=== PATIENT | male | born 1935 | race Caucasian/White ===

== ENCOUNTER 2018-01-15 05:55 | Day surgery (SDC) | payer MEDICARE, OTHER ==
[2018-01-14 16:43] LABS: BASOPHILS 0.6 % (0-2); EOSINOPHILS 5.5 % (0-7); HEMATOCRIT 40.3 % (42.0-54.0); HEMOGLOBIN 13.1 g/dL (13.5-17.5); IMMATURE GRANULOCYTES 0.4 % (0-5); LYMPHOCYTES 19.1 % (15-50); MCH 31.5 pg (26.0-34.0); MCHC 32.5 g/dL (31.0-37.0); MCV 96.9 fL (80.0-100.0); MEAN PLATELET VOLUME 9.4 fL (7.4-10.4); MONOCYTES 10.9 % (2-11); NEUTROPHILS 63.5 % (40-80); PLATELET COUNT 278 10x3/uL (130-400); RBC 4.16 10x6/uL (4.20-6.10); RDW 14.3 % (11.5-14.5); WBC 6.7 10x3/uL (4.8-10.8)
[2018-01-14 17:06] LABS: APTT 28.5 SECONDS (22.8-39.4); INR 1.06 (0.85-1.17); PROTIME 13.4 SECONDS (11.6-15.0)
[2018-01-14 17:20] LABS: ANION GAP 12.4 mmol/L (8-16); CALCIUM 8.4 mg/dL (8.5-10.1); CARBON DIOXIDE 28.1 mmol/L (21.0-32.0); CREATININE - SERUM 2.2 mg/dL (0.6-1.3); POTASSIUM - SERUM 4.5 mmol/L (3.5-5.1)
[~2018-01-15] VITALS: Ht 182.9 cm; Wt 116.6 kg
--- NOTE | ~2018-01-15 | OP ---
PATIENT NAME: DWIGHT KRAMER MEDICAL RECORD: [id number] :37 LOCATION:[facility] ADMISSION DATE: SURGEON: CAROL SIDDIQUI MD DATE OF OPERATION: 01/15/2018 PREOPERATIVE DIAGNOSIS: End-stage renal disease, on chronic hemodialysis. POSTOPERATIVE DIAGNOSES: End-stage renal disease, on chronic hemodialysis. OPERATION PERFORMED: Creation of a right brachiobasilic Erika type AV fistula as the first of 2 planned operations to construct a brachial artery to translocated basilic vein fistula. SURGEON: Carol Siddiqui MD ANESTHESIA: Regional block plus MAC per MILL ROLL REWINDER. PREOPERATIVE NOTE: Mr. Kramer is an 82-year-old white male patient referred to me by Dr. Gomez. Mr. Kramer has end-stage renal disease and is on chronic hemodialysis with a right-sided tunneled catheter. He requires long-term access. Despite his age of 82, I believe that his tissue should be able to support an AV fistula at least for going to attempt to create 1 today. I am anticipating he will need a brachial translocated fistula in 2 procedures. With the patient under nerve block and a MAC anesthesia, he was prepped and draped in sterile manner. I examined the right arm with Duplex ultrasound after applying nitroglycerin paste and using a Amarilis drain for a proximal venous tourniquet. The basilic vein was the best choice and the artery at the antecubital space appeared to be free of atherosclerotic change. I made a longitudinal incision on the inner aspect of the arm and then a curved this laterally into the antecubital space. I exposed the basilic vein and ligated and divided it just distal to the confluence of the basilic with the median cubital branch. I dissected that median cubital branch then distally in the antecubital space. I exposed first a large radial artery, which has aberrant proximal origin and then deep to that, I exposed the brachial artery, which was larger and I dissected and controlled with Silastic loops. The vein was ligated and divided and bevelled. It was flushed with heparinized saline and treated with topical papaverine. The artery was likewise treated with topical papaverine and then opened for a distance of about 6-7 mm. The artery was flushed proximally and distally with heparinized saline and end-to-side, end of vein to side of artery anastomosis then performed under no tension with running 7-0 Prolene. When completed, the occluding loops and clamps were released, excellent flow was immediately established within the fistula and flow in the distal, radial, and brachial arteries at the level of the antecubital space was preserved. The wound was irrigated with Ancef and gentamicin solution. It was then closed with interrupted inverted 3-0 Vicryl and then running intracuticular 4-0 Monocryl. The incision was sealed with Dermabond glue and dressed with Maxorb Ag, Tegaderm, and Cavilon skin prep. The patient then was awakened and taken back to the recovery room in stable condition. Blood loss during the procedure was essentially 0. Certainly none was administered. All sponges, instruments, and needles were accounted for. No drain was used and no surgical specimen obtained. I anticipate, the patient will go home later today and follow up with me in my office next week from prior surgeries. He has pain medication at home, I OPERATIVE REPORT [id number] DWIGHT KRAMER believe tramadol as well as hydrocodone medications. He can take it as needed for pain. No new prescriptions were given today. He is to continue his same medications and dialysis schedule and renal diet. He will be scheduled to return to the OR in 3-4 weeks, probably for the second stage operation. TRANSINT:[id number] Voice Confirmation ID: [id number] DOCUMENT ID: [id number] CAROL SIDDIQUI MD at 1123 CC: OMAR GOMEZ MD [id number] DICTATION DATE: 01/15/18 0954 BODY SHOP TECHNICIAN: 01/15/18 1250 [facility] 01/15/18 [facility] [address] [place] [address]
[~2018-01-15 05:55] MED LIST: ASPIRIN EC81 M1 PO; BUMEX2 MG PO; COREG6.25 MG PO; CRESTOR5 MG PO; KLONOPIN1 MG PO; LOTREL 5/20 MG1 CAP; NOVOLIN 70/30 110 ML; RENA-VITE TABL0.8 MG PO; RENAGEL800 MG PO
[2018-01-15 06:36] VITALS: BP 142/58; Ht 182.9 cm; Wt 116.6 kg
== END 2018-01-15 12:25 | disposition home or self-care (01) ==
LOC: D.OPS 05:55
PROVIDERS: Surgery
DX: N18.6 End stage renal disease (principal); Z99.2 Dependence on renal dialysis; Z01.812 Encounter for preprocedural laboratory examination

== ENCOUNTER 2018-02-12 06:00 | Day surgery (SDC) | payer MEDICARE, OTHER ==
[2018-02-11 17:02] LABS: BASOPHILS 0.3 % (0-2); EOSINOPHILS 5.7 % (0-7); HEMATOCRIT 35.9 % (42.0-54.0); IMMATURE GRANULOCYTES 0.5 % (0-5); LYMPHOCYTES 20.1 % (15-50); MCH 31.4 pg (26.0-34.0); MCHC 33.4 g/dL (31.0-37.0); MONOCYTES 11.5 % (2-11); NEUTROPHILS 61.9 % (40-80); RBC 3.82 10x6/uL (4.20-6.10); RDW 14.2 % (11.5-14.5); WBC 6.5 10x3/uL (4.8-10.8)
[2018-02-11 17:11] LABS: PLATELET COUNT 205 10x3/uL (130-400)
[2018-02-11 17:21] LABS: APTT 28.1 SECONDS (22.8-39.4); INR 1.02 (0.85-1.17)
[2018-02-11 17:24] LABS: ANION GAP 13.7 mmol/L (8-16); CARBON DIOXIDE 29.6 mmol/L (21.0-32.0); CREATININE - SERUM 2.3 mg/dL (0.6-1.3); POTASSIUM - SERUM 4.3 mmol/L (3.5-5.1)
[~2018-02-12] VITALS: Ht 182.9 cm; Wt 117.9 kg
--- NOTE | ~2018-02-12 | OP ---
PATIENT NAME: DWIGHT KRAMER MEDICAL RECORD: [id number] :37 LOCATION:[facility] ADMISSION DATE: SURGEON: CAROL SIDDIQUI MD DATE OF OPERATION: 02/12/2018 REFERRING PHYSICIAN: Omar Gomez MD PREOPERATIVE DIAGNOSIS: End-stage renal disease and dependence on hemodialysis. POSTOPERATIVE DIAGNOSIS: End-stage renal disease and dependence on hemodialysis. OPERATION PERFORMED: Second stage and creation of a brachial to translocated basilic AV fistula. SURGEON: Carol Siddiqui MD ANESTHESIA: General and also a regional block per GOLD LAYER. PREOPERATIVE NOTE: Mr. Kramer is an 82-year-old white male patient with end-stage renal disease, had a first stage of his planned 2 operations several weeks ago when I created a Erika type brachial to basilic AV fistula in his right arm. The fistula is enlarging and it is now time to return him to the operating room to create the real brachial artery to translocated fistula. After the patient was prepped and draped in a sterile manner, I examined the arm with Duplex ultrasound and noted that the basilic vein was quite nicely dilated and there did not appear to be many large tributaries or perforating or communicating veins. I made an incision along the arm from axilla to the prior incision and cut down through the subcutaneous tissue and fascia to expose the basilic vein from the antecubital level to the axilla. It was completely mobilized. Tributaries were divided between Vicryl ties and Hemoclips. The vein was treated repeatedly with topical papaverine and the wound and the vein were kept moistened with antibiotic containing saline solution. The vein was clamped distally, very close to the arterial anastomosis and an atraumatic clamp applied proximally. The vein was then transected and bevelled and the vein was flushed with heparinized saline and generally prepared for anastomosis and the vein was marked with a surgical marker to prevent twisting. I made a very superficial subcutaneous tunnel and passed the graft or the vein through it, but found that I had really made the tunnel just a little too long and it was not possible to adjust the vein without removing it from the tunnel. I did that and then mobilized the tissues with some electrocautery dissection and then further blunt dissection. I wanted to try to keep the graft as superficial as possible, but anterior to the primary incision also as much as possible. His subcutaneous tissues were very fragile and the operation was very much compromised by the difficulty I had in handling the subcutaneous tissues and skin. I ended up anastomosing the vein to the brachial artery above the previous anastomosis. The artery was opened and flushed with heparinized saline and an end-to-side basilic vein to brachial artery anastomosis was performed with running 7-0 Prolene and when completed, excellent flow was established immediately in the fistula. The vein distally coming off the original arterial anastomosis was ligated with silk ties. The wound was then closed over a SUE drain brought out distally through a separate incision. I left the translocated basilic vein as superficial as possible just beneath and slightly anterior to the primary surgical incision. The wound was closed in layers with interrupted 3-0 Vicryl OPERATIVE REPORT [id number] DWIGHT KRAMER and the skin was closed with a running intracuticular 4-0 Monocryl and Dermabond glue. The incision was dressed with Maxorb Ag, Tegaderm, and Cavilon skin prep. The patient was awakened and taken to the recovery room in stable condition. Blood loss was estimated about 100 cc. None was replaced. All sponges, instruments and needles were accounted for. One SUE 10 mm diameter flat fluted drain was utilized. In the recovery room, there was good pulsation, palpable thrill and audible bruit over the fistula, which was also visible. The patient is placed in a Sling to be worn for about 24 hours or until the nerve block wears off. The patient will be discharged to home today and will be returning to see me in my office next week. I have asked for home health referral so the nurses can see him and change his wounds and check on his SUE drain daily. TRANSINT:[id number] Voice Confirmation ID: [id number] DOCUMENT ID: [id number] CAROL SIDDIQUI MD at 2205 CC: OMAR GOMEZ MD [id number] DICTATION DATE: 02/25/18 185 CERTIFIED ETHICAL HACKER: 02/26/18 0236 [facility] 02/12/18 [address] [place] [address]
[2018-02-12 06:14] VITALS: BP 148/68; Ht 182.9 cm; Wt 117.9 kg
== END 2018-02-12 15:00 | disposition home or self-care (01) ==
LOC: D.OPS 06:00 → D.PAN 08:00 → D.OPS 15:00
PROVIDERS: Anesthesiology
DX: N18.6 End stage renal disease (principal); Z99.2 Dependence on renal dialysis; Z01.812 Encounter for preprocedural laboratory examination

== ENCOUNTER → 2018-04-02 16:56 | Outpatient (CLI) | payer MEDICARE, OTHER ==
[2018-02-12 06:14] VITALS: BMI 35.3
== END | disposition home or self-care (01) ==
LOC: D.LABREF 16:56
DX: S41.101A Unspecified open wound of right upper arm, initial encounter (principal); L08.9 Local infection of the skin and subcutaneous tissue, unspecified; X58.XXXA Exposure to other specified factors, initial encounter

== ENCOUNTER 2019-11-26 10:07 | Inpatient (IN) | payer MEDICARE, OTHER ==
[~2019-11-26] VITALS: Ht 182.9 cm; Wt 121.6 kg
[2019-11-26] MEDS ORDERED: GABAPENTIN100 MG PO (10:26)
[2019-11-26] MEDS ORDERED: ULTRAM50 MG PO (10:27)
[2019-11-26 11:00] VITALS: BP 101/52
--- NOTE | 2019-11-26 11:00 | NUR ---
URINE COLLECTED AND SENT VIA TUBE SYSTEM
[2019-11-26 11:22] LABS: BASOPHILS 0.3 % (0-2); EOSINOPHILS 2.7 % (0-7); HEMATOCRIT 35.9 % (42.0-54.0); HEMOGLOBIN 11.2 g/dL (13.5-17.5); IMMATURE GRANULOCYTES 0.5 % (0-5); LYMPHOCYTES 10.7 % (15-50); MCH 30.8 pg (26.0-34.0); MCHC 31.2 g/dL (31.0-37.0); MCV 98.6 fL (80.0-100.0); MEAN PLATELET VOLUME 10.5 fL (7.4-10.4); MONOCYTES 19.1 % (2-11); NEUTROPHILS 66.7 % (40-80); RBC 3.64 10x6/uL (4.20-6.10); RDW 15.9 % (11.5-14.5); WBC 7.5 10x3/uL (4.8-10.8)
[2019-11-26 11:23] LABS: PLATELET COUNT 250 10x3/uL (130-400)
[2019-11-26 11:31] LABS: BILIRUBIN NEGATIVE (NEGATIVE); GLUCOSE 250 mg/dL (NEGATIVE); KETONE NEGATIVE (NEGATIVE); NITRITE NEGATIVE (NEGATIVE); SPECIFIC GRAVITY 1.015 (1.005-1.020); UROBILINOGEN NORMAL (NORMAL)
[2019-11-26 11:32] LABS: WHITE CELLS - URINE 25-50 /hpf (NEGATIVE)
[2019-11-26 11:33] LABS: AMORPHOUS SEDIMENT <1+ /lpf (NONE SEEN); BACTERIA FEW /hpf (NEGATIVE)
[2019-11-26 12:18] VITALS: BP 101/49
[2019-11-26 13:10] LABS: ALBUMIN 2.6 g/dL (3.4-5.0); ANION GAP 16.2 mmol/L (8-16); BILIRUBIN - TOTAL 1.05 mg/dL (0.2-1.3); CALCIUM 8.1 mg/dL (8.5-10.1); CARBON DIOXIDE 26.9 mmol/L (21.0-32.0); CREATININE - SERUM 6.5 mg/dL (0.6-1.3); PROTEIN - SERUM 5.8 g/dL (6.4-8.2); TROPONIN-I 0.041 ng/mL (0.000-0.060)
[2019-11-26 13:12] LABS: POTASSIUM - SERUM 6.1 mmol/L (3.5-5.1)
--- NOTE | 2019-11-26 16:20 | NUR ---
PT TO DIALYSIS AT THIS TIME VIS STRETCHER.
--- NOTE | 2019-11-26 18:19 | NUR ---
BED RECEIVED FOR PT AT THIS TIME. REPORT CALLED TO ARVIN GUEVARA ON MED II. DIALYSIS NOTIFIED THAT PT IS TO GO TO ROOM 2140 UPON COMPLETION.
[2019-11-26] MEDS ORDERED: RENVELA800 MG PO (20:47)
[2019-11-27 01:33] VITALS: BP 111/45; BMI 36.4
[2019-11-27 04:00] VITALS: BP 109/57; BP 120/52
[2019-11-27 06:25] LABS: BASOPHILS 0.2 % (0-2); EOSINOPHILS 0.8 % (0-7); HEMOGLOBIN 11.5 g/dL (13.5-17.5); IMMATURE GRANULOCYTES 0.8 % (0-5); LYMPHOCYTES 6.8 % (15-50); MCH 31.1 pg (26.0-34.0); MCHC 31.9 g/dL (31.0-37.0); MCV 97.3 fL (80.0-100.0); MEAN PLATELET VOLUME 10.5 fL (7.4-10.4); MONOCYTES 16.2 % (2-11); NEUTROPHILS 75.2 % (40-80); PLATELET COUNT 249 10x3/uL (130-400); RDW 15.8 % (11.5-14.5); WBC 8.7 10x3/uL (4.8-10.8)
[2019-11-27 08:26] LABS: ALBUMIN 2.5 g/dL (3.4-5.0); ANION GAP 16.1 mmol/L (8-16); BILIRUBIN - TOTAL 1.2 mg/dL (0.2-1.3); CALCIUM 8.5 mg/dL (8.5-10.1); CARBON DIOXIDE 27.8 mmol/L (21.0-32.0); MAGNESIUM - SERUM 2.4 mg/dL (1.8-2.4); PHOSPHOROUS 7.6 mg/dL (2.5-4.9); PROTEIN - SERUM 6.2 g/dL (6.4-8.2)
[2019-11-27 08:27] LABS: POTASSIUM - SERUM 4.9 mmol/L (3.5-5.1)
[2019-11-27 09:23] VITALS: BP 123/70
[2019-11-27 11:16] VITALS: BMI 36.3
--- NOTE | 2019-11-27 13:41 | NUR ---
I have reviewed this patient and I concur with the Shift Assessment completed by the Licensed Practical Nurse today this shift.
[2019-11-27 14:11] VITALS: Ht 182.9 cm; Wt 121.6 kg
[2019-11-27 15:27] LABS: BASOPHILS 0.3 % (0-2); EOSINOPHILS 1.7 % (0-7); HEMATOCRIT 35.6 % (42.0-54.0); HEMOGLOBIN 11.4 g/dL (13.5-17.5); IMMATURE GRANULOCYTES 0.4 % (0-5); LYMPHOCYTES 11.6 % (15-50); MCH 31.3 pg (26.0-34.0); MCV 97.8 fL (80.0-100.0); MEAN PLATELET VOLUME 9.6 fL (7.4-10.4); MONOCYTES 16.9 % (2-11); NEUTROPHILS 69.1 % (40-80); PLATELET COUNT 237 10x3/uL (130-400); RBC 3.64 10x6/uL (4.20-6.10); RDW 15.9 % (11.5-14.5); WBC 7.4 10x3/uL (4.8-10.8)
[2019-11-27 15:59] LABS: ALBUMIN 2.5 g/dL (3.4-5.0); BILIRUBIN - TOTAL 1.1 mg/dL (0.2-1.3); CALCIUM 8.4 mg/dL (8.5-10.1); CARBON DIOXIDE 29.6 mmol/L (21.0-32.0); CREATININE - SERUM 3.2 mg/dL (0.6-1.3); PHOSPHOROUS 4.7 mg/dL (2.5-4.9); POTASSIUM - SERUM 3.6 mmol/L (3.5-5.1); PROTEIN - SERUM 6.4 g/dL (6.4-8.2)
[2019-11-27 16:01] LABS: TROPONIN-I 0.092 ng/mL (0.000-0.060)
--- NOTE | 2019-11-27 19:35 | NUR ---
BEEN IN AND OUT OF ROOM ANSWERING LIGHT AND PT QUESTIONS BUT HERE NOW FOR EXAM PT PRESENTS ANGRY UP AND AROUND ROOM ANMD VERY DEMANDING ASSISTED I COULD BED IS LOW AND LOCKED PT REFUSING O2 PT STATES HE WILL USE CPAP CALL LIGHT IN REACH
[2019-11-27 20:00] VITALS: BP 115/77
[2019-11-28] VITALS: BP 111/52
--- NOTE | 2019-11-28 03:52 | NUR ---
PT RANKS BACK PAIN 10/10 PAIN MED GIVEN WITH SIPS OF WATER
[2019-11-28 04:00] VITALS: BP 105/59
[2019-11-28 06:34] LABS: ANION GAP 14.5 mmol/L (8-16); CALCIUM 8.5 mg/dL (8.5-10.1); CARBON DIOXIDE 27.6 mmol/L (21.0-32.0); POTASSIUM - SERUM 4.1 mmol/L (3.5-5.1)
[2019-11-28 06:37] LABS: CREATININE - SERUM 4.3 mg/dL (0.6-1.3)
[2019-11-28 06:48] LABS: HEMOGLOBIN 11.2 g/dL (13.5-17.5); MCH 31.2 pg (26.0-34.0); MCV 97.5 fL (80.0-100.0); MEAN PLATELET VOLUME 9.8 fL (7.4-10.4); PLATELET COUNT 235 10x3/uL (130-400); RBC 3.59 10x6/uL (4.20-6.10); RDW 15.7 % (11.5-14.5); WBC 7.2 10x3/uL (4.8-10.8)
--- NOTE | 2019-11-28 07:10 | NUR ---
REPORT RECEIVED FROM PONY CYLINDER PRESS OPERATOR AND PATIENT CARE ASSUMED. PATIENT LAYING IN BED ON RT SIDE WITH EYES CLOSED AND BREATHING EVENLY. WILL CONTINUE WITH PLAN OF CARE. SR UP X 2 BED IN LOW POSITION AND CALL LIGHT IN REACH.
[2019-11-28 09:25] VITALS: BP 137/51
--- NOTE | 2019-11-28 11:07 | NUR ---
PATIENT RESTING QUIETLY IN BED. PATIENT REMAINS NPO AWAITNG SURGERY. WILL CONTINUE TO MONITOR. ASESSMENT CONTINUED.
--- NOTE | 2019-11-28 11:09 | NUR ---
PATEINT IS STABLE AND VSS. PATIENT TO CT VIA WC ACCOMPANIED BY CT STAFF.
[2019-11-28 11:28] LABS: EOSINOPHILS 6 % (0-7); LYMPHOCYTES 14 % (15-50); MONOCYTES 22 % (2-11); NEUTROPHILS 57 % (40-80); PLATELET ESTIMATE NORMAL
--- NOTE | 2019-11-28 15:15 | NUR ---
PATIENT RETURNED FROM SURGERY VIA HOSPITAL BED ACCOMPANIED BY HOSPITAL STAFF. PATIENT IS AWAKE AND GROGGY.BANDAGE TO RT GROIN C/D/I. VSS. FREQUENT VS SET UP. PT REQUESTED ICE CHIPS. WILL CONTINUE TO MONITOR. SR UP X 2 BED IN LOW POSITION AND CALL LIGHT IN REACH.
[2019-11-28 16:30] VITALS: BP 95/56
[2019-11-28 20:00] VITALS: BP 118/66
--- NOTE | 2019-11-28 20:30 | NUR ---
SEE MAR FOR TRAMADOL ADMINISTRATION FOR PAIN. ASSISTED PT TO GET A DRINK OF WATER. HE HAS A DINNER TRAY AT BEDSIDE BUT HE STATES HE IS NOT HUNGRY AND WANTS TO GO TO BED. HIS BLOOD SUGAR IS 129 SO NO INSULIN NEEDED. THE DRESSING TO HIS RIGHT GROIN FROM HIS SURGERY TODAY IS C/D/I. NO SIGNS OF BLEEDING TO SITE. HE IS WEARING HIS CPAP. HE DENIES NEEDS. BED IS LOW AND CALL LIGHT WITHIN REACH.
[2019-11-29 00:01] VITALS: BP 119/49
--- NOTE | 2019-11-29 03:04 | NUR ---
PT C/O PAIN TO HIS RIGHT GROIN THAT WOKE HIM UP FROM HIS SLEEP. HE REPORTS THE PAIN 03/01. OFFERED HIM A HYDROCODONE BUT HE DECLINED STATING THEY MAKE HIM SICK AND HYPER. LET HIM KNOW IT IS NOT TIME YET FOR THE TRAMADOL. OFFERED TO CALL THE MD BUT HE DECLINED. TRIED TO HELP HIM GET MORE COMFORTABLE IN THE BED. GAVE HIM MILK AND WATER REQUESTED. BED IS LOW AND CALL LIGHT IS WITHIN REACH.
[2019-11-29 04:00] VITALS: BP 96/43
[2019-11-29 06:43] LABS: HEMATOCRIT 36.3 % (42.0-54.0); HEMOGLOBIN 11.9 g/dL (13.5-17.5); MCH 31.9 pg (26.0-34.0); MCHC 32.8 g/dL (31.0-37.0); MCV 97.3 fL (80.0-100.0); MEAN PLATELET VOLUME 9.9 fL (7.4-10.4); PLATELET COUNT 254 10x3/uL (130-400); RBC 3.73 10x6/uL (4.20-6.10); RDW 16.2 % (11.5-14.5)
[2019-11-29 06:46] LABS: WBC 10.9 10x3/uL (4.8-10.8)
[2019-11-29 06:58] LABS: ANION GAP 21.1 mmol/L (8-16); CALCIUM 8.4 mg/dL (8.5-10.1); CARBON DIOXIDE 23.3 mmol/L (21.0-32.0); CREATININE - SERUM 5.6 mg/dL (0.6-1.3); POTASSIUM - SERUM 5.4 mmol/L (3.5-5.1)
[2019-11-29 07:05] LABS: LYMPHOCYTES 13 % (15-50); MONOCYTES 3 % (2-11); NEUTROPHILS 84 % (40-80); PLATELET ESTIMATE NORMAL
[2019-11-29 08:03] VITALS: BP 96/49
--- NOTE | 2019-11-29 10:07 | NUR ---
PT HAS BEEN IRATE SINCE I WALKED IN AT 0710 THIS MORNING. HE HAS YELLED MULTIPLE TIMES, WANTING TO KNOW "WHAT THE HELL IS GOING ON!" AND STATES THAT NO ONE HAS TOLD HIM ANYTHING. PT HAS BEEN ON THE CALL LIGHT ONCE EVERY 10-15 MINUTES. PT SCREAMED AT ME FOR NOT GETTING HIS BREAKFAST, INFORMED PT THAT WAS HIS BREAKFAST ON HIS TABLE, PT THEN SCREAMED "WELL I'M LYING HERE FLAT AND CANT' SEE THAT TRAY". SHOWED PT HOW TO USE HIS SIDERAILS, PT INFORMED ME HE ALREADY KNEW HOW TO DO IT "BUT THEY PUT THE BUTTONS SO DAMN OUT OF REACH AND THAT'S A STUPID DESIGN"! PT HAD ME PLACE HIS THUMB ON THE UP BUTTON, THEN HE COMPLAINED IT DIDN'T WORK AND MADE ME PUT HIS THUMB BACK ON THE BUTTON, THEN USE MY FINGERS TO PRESS HIS THUMB TO MAKE THE BED GO BECAUSE HE DIDN'T WANT ME TO DO IT HIMSELF. PT CALLED AGAIN WANTING HOT COFFE, TECH GAVE PT COFFEE, THEN PT INSISTED HE HAD TO BE LAYED BACK DOWN AND COULDN'T DO IT HIIMSELF. THEN PT PROCEDED TO DEMAND THE COFFEE WHILE HE WAS LYING DOWN, WE STRONGLY ADVISED AGAISNT THIS MULTIPLE TIMES, PT THEN GOT MAD AGAIN SO WE GAVE HIM THE COFFEE. PT IMMEDIATELY SPILT IT ON HIMSELF (SKIN WAS PINK BUT THAT FADED). PT THEN MADE ME STAND THERE AND ALLOW HIM TO SIP HIS COFFEE FROM A STRAW. PT IS PERFECTLY CAPABLE OF USING SIDE RAILS, CLAIMS IT'S AN INCONVIENCE TO DO SO. PT THEN CALLED AGAIN DEMANDING WE ALLOW HIM TO GET UP, INFORMED HIM HE WOULD NEED TO WAIT FOR PHYSICAL THERAPY SINCE HE CLAIMED HE CAN'T ACTAULLY GET UP. PT AGAIN BECAME WILTON DEMANDING WE SET HIM ON THE SIDE OF BED. TECH ASSISTED HIM IN SITTING, TURNED BED ALARM AN ADVISED HIM TO CALL WHEN HE NEEDED TO LIE DOWN. PHYSICAL THERAPY IN ROOM ASSESING NOW. SPOKE TO PTS DAUGHTER, SHE STATES THAT THE PT WILL REFUSE REHAB BUT MAY AGREE TO HOME HEALTH PHYSCIAL THERAPY THE PTS CAN NOT REALLY ASSIST WITH ADLS D/T PTS SIZE COMPARED TO HER OWN. WILL CONT. TO ASSES AND MONITROR
[2019-11-29] MEDS ORDERED: HYDROCODON-ACE1 EA10 PO (10:55)
[2019-11-29] MEDS ORDERED: LOTENSIN 10 MG10 MG PO (11:19)
[2019-11-29] MEDS ORDERED: NORVASC5 MG PO (11:19)
[2019-11-29 11:56] VITALS: BP 113/52
--- NOTE | 2019-11-29 14:20 | NUR ---
PT LILYSERENITY HAS DECIDED AGAISNT HOME HEALTH, THEY STATES THEY DO NOT NEED HOME HEALTH. ADVISED STRONGLY AGAISNT THIS DECISION, DID TRAVEL ATTENDANTS. FAMILY DOES NOT WANT OTHER PEOPLE IN THE HOUSE.
--- NOTE | 2019-11-29 14:30 | MORECARE ---
CASE MANAGEMENT DISCHARGE SUMMARY PATIENT: DWIGHT KRAMER UNIT: [id number] ADM DATE: 11/26/19 AGE: 84 : 36 SEX: M ROOM/BED: D.2140 AUTHOR: MAGALY DODD PHYSICIAN: REFERRING PHYSICIAN: BANDAR CRONIN MD DATE OF SERVICE: 11/29/19 Discharge Plan Patient Name: DWIGHT KRAMER [facility] [facility] 1935 Planned Disposition: Home Health Service Anticipated Discharge Date: 11/29/19 Discharge Date: Expected LOS: 3 Initial Reviewer: [email or web address] Initial Review Date: 11/26/2019 Generated: 11/29/19 3:29 pm Patient Name: DWIGHT KRAMER Page [phone] at 1430 All edits/amendments must be made on the electronic document DICTATION DATE: 11/29/19 1430 MOHS SURGEON/GENERAL DERMATOLOGIST: JONI 11/29/19 1430 RPT#: [id number] DC DATE: STATUS: ADM IN [facility] [address] [place] [address] END OF REPORT
--- NOTE | 2019-11-29 14:43 | MORECARE ---
CASE MANAGEMENT DISCHARGE SUMMARY PATIENT: DWIGHT KRAMER UNIT: [id number] ADM DATE: 11/26/19 AGE: 84 : 36 SEX: M ROOM/BED: D.2140 AUTHOR: MAGALY DODD PHYSICIAN: REFERRING PHYSICIAN: BANDAR CABRAL MD DATE OF SERVICE: 11/29/19 Discharge Plan Patient Name: DWIGHT KRAMER [facility] [facility] 1935 Planned Disposition: Home Health Service Anticipated Discharge Date: 11/29/19 Discharge Date: Expected LOS: 3 Initial Reviewer: [email or web address] Initial Review Date: 11/26/2019 Generated: 11/29/19 3:42 pm DCPIA - Discharge Planning Initial Assessment Updated by [email or web address]: Lian Kemp on 11/29/19 2:41 pm * Is the patient Alert and Oriented? Yes * How many steps to enter\exit or inside your home? one * PCP DR Cabral * Preadmission Environment Home with Family * ADLs Partial Dependent * Partial ADLs (Assistance needed) Bathing Dressing Toileting Transfers * Equipment CPAP Oxygen Wheelchair * Other Equipment as above * List name and contact numbers for known caregivers / representatives who currently or will assist patient after discharge: Kelly Kramer- [phone] spouse * Verbal permission to speak to the caregivers and representatives has been obtained from the patient. Yes * Community resources currently utilized None * Please name any agencies selected above. n/a * Additional services required to return to the preadmission environment? Yes * Can the patient safely return to the preadmission environment? Yes * Has this patient been hospitalized within the prior 30 days at any hospital? No Last DP export: 11/29/19 1:30 pm Patient Name: DWIGHT KRAMER Page [phone] at 1443 All edits/amendments must be made on the electronic document DICTATION DATE: 11/29/19 1443 STATION CHIEF: JONI 11/29/19 1443 RPT#: [id number] DC DATE: STATUS: ADM IN [facility] [address] [place] [address] END OF REPORT
--- NOTE | 2019-11-29 15:03 | MORECARE ---
CASE MANAGEMENT DISCHARGE SUMMARY PATIENT: DWIGHT KRAMER UNIT: [id number] ADM DATE: 11/26/19 AGE: 84 : 36 SEX: M ROOM/BED: D.2140 AUTHOR: JU,DOC PHYSICIAN: REFERRING PHYSICIAN: BANDAR CABRAL MD DATE OF SERVICE: 11/29/19 Discharge Plan Patient Name: DWIGHT KRAMER Facility: [facility]:[place] : 1935 Planned Disposition: Home Health Service Anticipated Discharge Date: 11/29/19 Discharge Date: Expected LOS: 3 Initial Reviewer: [email or web address] Initial Review Date: 11/26/2019 Generated: 11/29/19 4:03 pm Comments DCP- Discharge Planning Updated by [email or web address]: Lina Kemp on 11/29/19 1:[address] DISCHARGE ORDERS RECEIVED. CM SPOKE WITH THE PATIENT. HE DID NOT REALLY WANT HOME HEALTH. BUT HE GAVE PERMISSION TO CALL HIS . TC TO [phone]. DISCONNECTED TC TO [phone]. RECORDING IMMEDIATELY STATED THE PERSON IS NOT AVAILABLE. S/W THE NURSE TO VERIFY CONTACT NUMBERS AFTER 3 ATTEMPTS. SHE HAS THE SAME NUMBERS. PLANS TO CALL AT 3 PM. CALLED AGAIN. GOT VOICEMAIL. LEFT MESSAGE- 9544 REC CB 0410 FROM THE AND DAUGHTER. REVIEWED MD PLAN. REVIEWED PHYSICAL THERAPY NOTES. DISCUSSED DISCHARGE NEEDS AND PRESENT CONDITION, ASSISTANCE AND DME. DTR AND UNCERTAIN RE: HOME HEALTH. CM EXPLAINED THE SERVICES. THEY ONLY WANT PHYSICAL THERAPY. THEY PLAN TO CALL AND DISCUSS W/ A FRIEND. REC CB FROM THE PRIMARY NURSE, KASEY. THE AND DTR ARE REFUSING HOME HEALTH. SHE AGAIN DISCUSSED PATIENT NEEDS. THEY DECLINED. KASEY, THE PRIMARY NURSE ,NOTIFIED THE ELECTRIC WHEELCHAIR REPAIRER DCPIA - Discharge Planning Initial Assessment Updated by [email or web address]: Lina Kemp on 11/29/19 2:41 pm * Is the patient Alert and Oriented? Yes * How many steps to enter\exit or inside your home? one * PCP DR Cabral * Preadmission Environment Home with Family * ADLs Partial Dependent * Partial ADLs (Assistance needed) Bathing Dressing Toileting Transfers * Equipment CPAP Oxygen Wheelchair * Other Equipment as above * List name and contact numbers for known caregivers / representatives who currently or will assist patient after discharge: Kelly Kramer- [phone] spouse * Verbal permission to speak to the caregivers and representatives has been obtained from the patient. Yes * Community resources currently utilized None * Please name any agencies selected above. n/a * Additional services required to return to the preadmission environment? Yes * Can the patient safely return to the preadmission environment? Yes * Has this patient been hospitalized within the prior 30 days at any hospital? No Last DP export: 11/29/19 1:43 pm Patient Name: DWIGHT KRAMER Page [phone] at 1503 All edits/amendments must be made on the electronic document DICTATION DATE: 11/29/19 150 STAFF COUNSELOR: JONI 11/29/191502 RPT#: [id number] DC DATE: STATUS: ADM IN [facility] [address] [place] [address] END OF REPORT
--- NOTE | 2019-11-29 15:23 | MORECARE ---
CASE MANAGEMENT DISCHARGE SUMMARY PATIENT: DWIGHT KRAMER UNIT: [id number] ADM DATE: 11/26/19 AGE: 84 : 36 SEX: M ROOM/BED: D.2140 AUTHOR: JU,DOC PHYSICIAN: REFERRING PHYSICIAN: BANDAR CABRAL MD DATE OF SERVICE: 11/29/19 Discharge Plan Patient Name: DWIGHT KRAMER Facility: [facility]:[place] : 1935 Planned Disposition: Home Health Service Anticipated Discharge Date: 11/29/19 Discharge Date: Expected LOS: 3 Initial Reviewer: [email or web address] Initial Review Date: 11/26/2019 Generated: 11/29/19 4:22 pm Comments DCP- Discharge Planning Updated by [email or web address]: Lina Kemp on 11/29/19 2:[address] Pharmacy- Patient states [facility] Awaiting arrival of the and daughter for the nurse to explain discharge orders and obtain signatures for refusal of home health.. DCP- Discharge Planning Updated by [email or web address]: Lina Kemp on 11/29/19 1:[address] DISCHARGE ORDERS RECEIVED. CM SPOKE WITH THE PATIENT. HE DID NOT REALLY WANT HOME HEALTH. BUT HE GAVE PERMISSION TO CALL HIS . TC TO [phone]. DISCONNECTED TC TO [phone]. RECORDING IMMEDIATELY STATED THE PERSON IS NOT AVAILABLE. S/W THE NURSE TO VERIFY CONTACT NUMBERS AFTER 3 ATTEMPTS. SHE HAS THE SAME NUMBERS. PLANS TO CALL AT 3 PM. CALLED AGAIN. GOT VOICEMAIL. LEFT MESSAGE- 9524 REC CB 7712 FROM THE AND DAUGHTER. REVIEWED MD PLAN. REVIEWED PHYSICAL THERAPY NOTES. DISCUSSED DISCHARGE NEEDS AND PRESENT CONDITION, ASSISTANCE AND DME. DTR AND UNCERTAIN RE: HOME HEALTH. CM EXPLAINED THE SERVICES. THEY ONLY WANT PHYSICAL THERAPY. THEY PLAN TO CALL AND DISCUSS W/ A FRIEND. REC CB FROM THE PRIMARY NURSE, KASEY. THE AND DTR ARE REFUSING HOME HEALTH. SHE AGAIN DISCUSSED PATIENT NEEDS. THEY DECLINED. KASEY, THE PRIMARY NURSE ,NOTIFIED THE SECTION LEADER DCPIA - Discharge Planning Initial Assessment Updated by [email or web address]: Lina Kemp on 11/29/19 2:41 pm * Is the patient Alert and Oriented? Yes * How many steps to enter\exit or inside your home? one * PCP DR Cabral * Preadmission Environment Home with Family * ADLs Partial Dependent * Partial ADLs (Assistance needed) Bathing Dressing Toileting Transfers * Equipment CPAP Oxygen Wheelchair * Other Equipment as above * List name and contact numbers for known caregivers / representatives who currently or will assist patient after discharge: Kelly Kramer- [phone] spouse * Verbal permission to speak to the caregivers and representatives has been obtained from the patient. Yes * Community resources currently utilized None * Please name any agencies selected above. n/a * Additional services required to return to the preadmission environment? Yes * Can the patient safely return to the preadmission environment? Yes * Has this patient been hospitalized within the prior 30 days at any hospital? No Last DP export: 11/29/19 2:03 pm Patient Name: DWIGHT KRAMER Page 28542 at 1523 All edits/amendments must be made on the electronic document DICTATION DATE: 11/29/19 152 LATIN PROFESSOR: JONI 11/29/19 152 RPT#: [id number] DC DATE: STATUS: ADM IN [facility] [address] [place] [address] END OF REPORT
--- NOTE | 2019-11-29 19:49 | NUR ---
RETURNED FROM DIALYSIS. IV D/C'D AND PERSONAL BELONGINGS GATHERED. FAMILY AT ER ENTRANCE WAITING. ASSIST X2 UP TO W/C. DISCHARGE INSTRUCTIONS OVERVIEWED WITH HIM. GAVE VERBAL UNDERSTANDING. ALERT AND ORIENTED X4. FISTULA TO RT ARM WITH DSG CDI. ASSIST TO ER ENTRANCE WITH 2 STAFF.
--- NOTE | 2019-12-01 13:24 | MORECARE ---
CASE MANAGEMENT DISCHARGE SUMMARY PATIENT: DWIGHT KRAMER UNIT: [id number] ADM DATE: 11/26/19 AGE: 84 : 37 SEX: M ROOM/BED: D.2140 AUTHOR: JU,DOC PHYSICIAN: REFERRING PHYSICIAN: BANDAR CABRAL MD DATE OF SERVICE: 12/01/19 Discharge Plan Patient Name: DWIGHT KRAMER Facility: [facility]:[place] : 1935 Planned Disposition: Home Health Service Anticipated Discharge Date: 11/29/19 Discharge Date: 11/29/2019 Expected LOS: 3 Initial Reviewer: [email or web address] Initial Review Date: 11/26/2019 Generated: 12/01/19 2:23 pm Comments DCP- Discharge Planning Updated by [email or web address]: Lina Kemp on 11/29/19 2:[address] Pharmacy- Patient states [facility] Awaiting arrival of the and daughter for the nurse to explain discharge orders and obtain signatures for refusal of home health.. DCP- Discharge Planning Updated by [email or web address]: Lina Kemp on 11/29/19 1:[address] DISCHARGE ORDERS RECEIVED. CM SPOKE WITH THE PATIENT. HE DID NOT REALLY WANT HOME HEALTH. BUT HE GAVE PERMISSION TO CALL HIS . TC TO [phone]. DISCONNECTED TC TO [phone]. RECORDING IMMEDIATELY STATED THE PERSON IS NOT AVAILABLE. S/W THE NURSE TO VERIFY CONTACT NUMBERS AFTER 3 ATTEMPTS. SHE HAS THE SAME NUMBERS. PLANS TO CALL AT 3 PM. CALLED AGAIN. GOT VOICEMAIL. LEFT MESSAGE- [id number] [address] 5102 FROM THE AND DAUGHTER. REVIEWED MD PLAN. REVIEWED PHYSICAL THERAPY NOTES. DISCUSSED DISCHARGE NEEDS AND PRESENT CONDITION, ASSISTANCE AND DME. DTR AND UNCERTAIN RE: HOME HEALTH. CM EXPLAINED THE SERVICES. THEY ONLY WANT PHYSICAL THERAPY. THEY PLAN TO CALL AND DISCUSS W/ A FRIEND. REC CB FROM THE PRIMARY NURSE, KASEY. THE AND DTR ARE REFUSING HOME HEALTH. SHE AGAIN DISCUSSED PATIENT NEEDS. THEY DECLINED. KASEY, THE PRIMARY NURSE ,NOTIFIED THE AEROSPACE MANAGER DCPIA - Discharge Planning Initial Assessment Updated by [email or web address]: Lina Kemp on 11/29/19 2:41 pm * Is the patient Alert and Oriented? Yes * How many steps to enter\exit or inside your home? one * PCP DR Cabral * Preadmission Environment Home with Family * ADLs Partial Dependent * Partial ADLs (Assistance needed) Bathing Dressing Toileting Transfers * Equipment CPAP Oxygen Wheelchair * Other Equipment as above * List name and contact numbers for known caregivers / representatives who currently or will assist patient after discharge: Kelly Kramer- [phone] spouse * Verbal permission to speak to the caregivers and representatives has been obtained from the patient. Yes * Community resources currently utilized None * Please name any agencies selected above. n/a * Additional services required to return to the preadmission environment? Yes * Can the patient safely return to the preadmission environment? Yes * Has this patient been hospitalized within the prior 30 days at any hospital? No Last DP export: 11/29/19 2:23 pm Patient Name: DWIGHT KRAMER Page [id number] at 1324 All edits/amendments must be made on the electronic document DICTATION DATE: 12/01/19 1323 GRAIN RECEIVER: JONI 12/01/19 1323 RPT#: [id number] DC DATE:11/29/19 STATUS: DIS IN [facility] [address] [place] [address] END OF REPORT
--- NOTE | 2019-12-02 16:49 | OP ---
PATIENT NAME: DWIGHT KRAMER MEDICAL RECORD: [id number] :37 LOCATION:D.M2 D.2140 ADMISSION DATE:11/26/19 SURGEON: JAME WOLFE MD DATE OF OPERATION: 11/28/2019 PREOPERATIVE DIAGNOSES: 1. Right inguinal hernia. 2. End-stage renal disease. 3. Anemia of chronic kidney disease. 4. Systolic chronic heart failure. POSTOPERATIVE DIAGNOSES: 1. Right inguinal hernia. 2. End-stage renal disease. 3. Anemia of chronic kidney disease. 4. Systolic chronic heart failure. PROCEDURE: Right inguinal hernia repair with extended PHS mesh. SURGEON: Jame Wolfe MD REPORT OF PROCEDURE: The patient's right groin was prepped and draped in sterile fashion. An oblique incision was made above the inguinal ligament. Electrocautery was used to dissect through the subcutaneous tissues down to the external oblique fascia. This fascia was opened up down to the external ring using electrocautery. The spermatic cord was elevated and a Amarilis was placed around it. The ilioinguinal nerve was found and high ligated. The patient had a large direct hernia defect. This was freed up from the spermatic cord. We were then able to push this back down into the abdominal cavity. A window was made in the defect and we were able to insert an extended PHS mesh. This mesh was sutured down on all sides using multiple interrupted 0 Vicryls. The mesh appeared to rest in good position. The wound was then irrigated out with normal saline. The external oblique fascia was closed with running 2-0 Vicryl, Lilia's was closed with interrupted 3-0 Vicryls and the skin was closed with running subcutaneous 5-0 Monocryl. A total of 10 mL of 0.25% Marcaine with epinephrine was infused into the surrounding tissues and the wound was dressed appropriately. COMPLICATIONS: None. CONDITION: Stable. ANESTHESIA: General endotracheal and local. BLOOD LOSS: Minimal. TRANSINT:[id number] Voice Confirmation ID: [id number] DOCUMENT ID: [id number] OPERATIVE REPORT [id number] DWIGHT KRAMER JAME WOLFE MD at 1649 CC: [id number] DICTATION DATE: 11/28/19 1419 INDUSTRIAL ELECTRICIAN JOURNEYMAN: 11/28/192008 DIS IN 11/29/[address] [place] [address]
== END 2019-11-29 19:53 | disposition home health service (06) | DRG 987 ==
LOC: D.ER 10:07 → D.M2 14:02
PROVIDERS: Family Medicine; Internal Medicine Nephrology; Surgery; ADMIT Internal Medicine Nephrology; ATTEND Internal Medicine Nephrology
PROC: 0YU50JZ Supplement Right Inguinal Region with Synthetic Substitute, Open Approach (ICD-10-PCS; principal; 2019-11-28 10:45)
DX: I13.2 Hypertensive heart and chronic kidney disease with heart failure and with stage 5 chronic kidney disease, or end stage renal disease (principal); I50.23 Acute on chronic systolic (congestive) heart failure; N18.6 End stage renal disease; K40.90 Unilateral inguinal hernia, without obstruction or gangrene, not specified as recurrent; E11.22 Type 2 diabetes mellitus with diabetic chronic kidney disease; Z99.2 Dependence on renal dialysis; I48.91 Unspecified atrial fibrillation; E21.3 Hyperparathyroidism, unspecified; E87.5 Hyperkalemia